=== PATIENT | female | born 1950 | race African-American/Black ===

== ENCOUNTER 2021-08-27 10:37 | Emergency (ER) | payer MEDICARE ==
[~2021-08-27] VITALS: Ht 160 cm; Wt 81.0 kg
[2021-08-27] MEDS ORDERED: TERA5CAP3 PO (10:57)
[2021-08-27] MEDS ORDERED: ECOT81TA5 PO (10:57)
[2021-08-27] MEDS ORDERED: ALLO100T PO (10:57)
[2021-08-27] MEDS ORDERED: METO200T28 PO (10:57)
[2021-08-27] MEDS ORDERED: NOXI1TAB PO (10:57)
[2021-08-27] MEDS ORDERED: LOSA100T50 PO (10:57)
[2021-08-27] MEDS ORDERED: NIFE1TAB52 PO (10:57)
[2021-08-27] MEDS ORDERED: CLIN-250 PO (10:57)
[2021-08-27] MEDS ORDERED: ATOR1TAB21 PO (10:57)
[2021-08-27] MEDS ORDERED: IBUP-1022 PO (11:01)
[2021-08-27] MEDS ORDERED: NORCO, ANEXSIA 5/325MG TABLET (HYDROcodone/ACETAMINOPHEN) PO ONE (12:55)
[2021-08-27] MEDS ORDERED: predniSONE 20 MG TAB PO ONE (12:55)
[2021-08-27] MEDS ORDERED: PRED20TA PO (12:57)
[2021-08-27] MEDS ORDERED: MAGICMW SSP ×2 (12:57→13:23)
--- OUTSIDE RECORDS SUMMARY | 2021-08-27 13:12 | CCD ---
Author Author [facility] Address Unknown Phone Unavailable Support Name Relationship Address Phone RE Next Of Kin Unknown Unavailable MARTIN BALDERRAMA [place] [address] DERECK BALDERRAMA Next Of Kin [address], [place] [id number] Re-disclosure Warning The records that you are about to access may contain information from federally-assisted alcohol or drug abuse programs. If such information is present, then the following federally mandated warning applies: This information has been disclosed to you from records protected by federal confidentiality rules (42 CFR part 2). The federal rules prohibit you from making any further disclosure of this information unless further disclosure is expressly permitted by the written consent of the person to whom it pertains or as otherwise permitted by 42 CFR part 2. A general authorization for the release of medical or other information is NOT sufficient for this purpose. The Federal rules restrict any use of the information to criminally investigate or prosecute any alcohol or drug abuse patient.The records that you are about to access may contain highly sensitive health information, the redisclosure of which is protected by Article 27-F of the [facility] Public Health law. If you continue you may have access to information: Regarding HIV / AIDS; Provided by facilities licensed or operated by the [facility] Office of Mental Health; or Provided by the [facility] Office for People With Developmental Disabilities. If such information is present, then the following [facility] mandated warning applies: This information has been disclosed to you from confidential records which are protected by state law. State law prohibits you from making any further disclosure of this information without the specific written consent of the person to whom it pertains, or as otherwise permitted by law. Any unauthorized further disclosure in violation of state law may result in a fine or care home sentence or both. A general authorization for the release of medical or other information is NOT sufficient authorization for further disc losure. Medications No Information Insurance Providers Payer name Policy type / Coverage type Policy ID Covered alliance party ID Covered alliance party's relationship to [place] Policy [place] Plan Information [facility] [id number] Problems, Conditions, and Diagnoses No Information Surgeries/Procedures No Information Results No Information Social History No Information
[2021-08-27] MEDS ORDERED: HYDR-3713 PO (13:21)
[2021-08-27 13:28] VITALS: BP 145/78
== END 2021-08-27 13:39 | disposition home or self-care (01) ==
LOC: M ED 10:37
DX: K08.89 Other specified disorders of teeth and supporting structures (principal); R22.0 Localized swelling, mass and lump, head; E78.5 Hyperlipidemia, unspecified; I13.10 Hypertensive heart and chronic kidney disease without heart failure, with stage 1 through stage 4 chronic kidney disease, or unspecified chronic kidney disease; Z88.0 Allergy status to penicillin; Z91.013 Allergy to seafood; Z79.899 Other long term (current) drug therapy
CPT/HCPCS: 99283; J7512